=== PATIENT | male | born 1995 | race Caucasian/White ===

== ENCOUNTER 2021-06-09 10:35 | Emergency (ER) | payer OTHER ==
[2021-06-09 10:43] VITALS: BP 135/81; PULSE 86; RESP 18; TEMP 98
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
== END 2021-06-09 12:00 | disposition home or self-care (01) ==
LOC: EC 10:35
DX: S06.0X0A Concussion without loss of consciousness, initial encounter (principal); S01.511A Laceration without foreign body of lip, initial encounter; Z87.891 Personal history of nicotine dependence; Y04.8XXA Assault by other bodily force, initial encounter; Y92.89 Other specified places as the place of occurrence of the external cause
CPT/HCPCS: 70450; 70486; 99284